=== PATIENT | male | born 1955 | race Caucasian/White ===

== ENCOUNTER 2017-11-26 23:03 | Emergency (ER) | payer SELFPAY ==
--- NOTE | 2017-11-27 04:56 | EDM.PDOC ---
ED HPI GENERAL MEDICAL PROBLEM - General Chief Complaint: Cardiovascular Problem Stated Complaint: HIGH BLOOD PRESSURE Time Seen by Provider: 11/27/17 03:18 Source of Information: Reports: Patient, Family (Sister) History Limitations: Reports: Language Barrier (Used online records administrator) - History of Present Illness INITIAL COMMENTS - FREE TEXT/NARRATIVE: The patient states that he has a history of hypertension, for which he is prescribed lisinopril 30 mg po QAM and 10 mg po QPM, from [facility]. He states that he gets the prescription through the mail from [facility], but has not received any for the past 6 months, therefore he has been taking his sister's lisinopril for the past 4 months. The patient states that he checks his blood pressure twice a day. He states that his blood pressure was elevated at 16:00 yesterday afternoon, Monday, 2017. He states that he then took 12 tablets of his sister's lisinopril 10 mg. Here in the ED, his initial blood pressure was elevated at 217/113, but decreased to 158/107 without treatment. The patient does not have a PCP here in the . - Related Data Allergies Allergy/AdvReac Type Severity Reaction Status Date / Time No Known Allergies Allergy Verified 11/26/17 23:14 Home Meds: Home Meds . [No Known Home Meds] 11/26/17 [History] Past Medical History Cardiovascular History: Reports: Hypertension - Past Surgical History HEENT Surgical History: Reports: Oral Surgery (wisdom teeth extraction) GI Surgical History: Reports: Hernia, Inguinal (left) Musculoskeletal Surgical History: Reports: Other (See Below) (Left elbow surgery , open) Social & Family History - Tobacco Use Smoking Status *Q: Former Smoker Years of Tobacco use: 24 Packs/Tins Daily: 0.5 Month/Year Tobacco Last Used: Quit 2011 - Alcohol Use Alcohol Use History: Yes Date/Time of Last Drink Comment: Alcoholic, abstinate since 2015 - Recreational Drug Use Recreational Drug Use: Yes Drug Use in Last 12 Months: No Recreational Drug Type: Reports: Marijuana/Hashish (last smoked around 2011) - Living Situation & Occupation Living situation: Reports: (), with Family (Sister) Occupation: Employed (Construction) ED ROS GENERAL - Review of Systems Review Of Systems: ROS reveals no pertinent complaints other than HPI. ED EXAM, GENERAL - Physical Exam Exam: See Below Exam Limited By: No Limitations General Appearance: Alert, WD/WN, No Apparent Distress Eye Exam: Bilateral Eye: EOMI, Foreign Body Ears: Normal External Exam, Hearing Grossly Normal Nose: Normal Inspection, No Blood Throat/Mouth: Normal Inspection, Normal Lips, Normal Voice, No Airway Compromise Head: Atraumatic, Normocephalic Neck: Normal Inspection, Full Range of Motion Respiratory/Chest: No Respiratory Distress, Lungs Clear, Normal Breath Sounds, No Accessory Muscle Use Cardiovascular: Normal Peripheral Pulses, Regular Rate, Rhythm, No Gallop, No JVD, No Murmur, No Rub Peripheral Pulses: 4+: Radial (L), Radial (R) GI/Abdominal: Normal Bowel Sounds, Soft, Non-Tender, No Organomegaly, No Distention, No Abnormal Bruit, No Mass, Other (Obese) (Male) Exam: Deferred Rectal (Males) Exam: Deferred Back Exam: Normal Inspection, Full Range of Motion, NT Extremities: Normal Inspection, Normal Range of Motion, No Pedal Edema, Normal Capillary Refill Neurological: Alert, Oriented, Normal Cognition, No Motor/Sensory Deficits Psychiatric: Normal Affect Skin Exam: Warm, Dry, Intact, Normal Color, No Rash Course - Vital Signs Last Recorded V/S: Last Vital Signs Temp 36.2 C 11/26/17 23:14 Pulse 70 11/26/17 23:14 Resp 18 11/26/17 23:14 BP 217/113 H 11/26/17 23:14 Pulse Ox 95 11/26/17 23:14 - Re-Assessments/Exams Free Text/Narrative Re-Assessment/Exam: 11/27/17 04:51 The patient's blood pressure was significantly elevated at 217/113 when he initially arrived, however, without treatment, it has reduced to 150/107, below the threshold that would require emergent treatment. The definition of hypertension, and how it should be measured and managed, was discussed at length. For today's purposes, I am recommending that the patient continue to take lisinopril at his currently prescribed dosage, and that he not take any extra doses, even if his blood pressure is periodically elevated, however, I will refer him to Janie Scott for further evaluation and treatment. I do not see an indication for emergency blood work or other tests at this time. Departure - Departure Time of Disposition: 04:53 Disposition: Home, Self-Care 01 Condition: Good Clinical Impression: Hypertension Instructions: Hypertension, [id number] Referrals: Janie Scott PA [Physician Business Development Executive] - Forms: ED Department Discharge Additional Instructions: You were seen in the emergency room for a concern about elevated blood pressure. While your blood pressure was elevated when you initially arrived, it has significantly decreased without treatment, and was never so high as to require emergency treatment. We recommend that you continue to take lisinopril at your previously prescribed dose of 30 mg in the morning and 10 mg at night. Do not take extra doses, even if your blood pressure is occasionally elevated. Follow-up with Janie Ames at the next available appointment, for further evaluation and treatment of your blood pressure. If any other problems, please do not hesitate to return to the ER.
== END 2017-11-27 05:03 | disposition home or self-care (01) ==
LOC: JD.ED 23:03
DX: I10 Essential (primary) hypertension (principal); Z87.891 Personal history of nicotine dependence
CPT/HCPCS: 99283

== ENCOUNTER 2018-11-26 17:21 | Emergency (ER) | payer SELFPAY ==
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
== END 2018-11-26 18:20 | disposition home or self-care (01) ==
LOC: JD.ED 17:21
DX: F10.120 Alcohol abuse with intoxication, uncomplicated (principal); I10 Essential (primary) hypertension
CPT/HCPCS: 99282; 99284